=== PATIENT | female | born 1965 | race Two or more races ===

== ENCOUNTER 2022-11-04 10:18 | Outpatient (CLI) | payer OTHER ==
[~2022-11-04 10:18] MED LIST: PREMPRO PO
== END 2022-11-04 10:22 | disposition home or self-care (01) ==
LOC: SONOGRAMA 10:18
PROVIDERS: ATTEND Pathology Anatomic Pathology & Clinical Pathology
DX: D34 Benign neoplasm of thyroid gland (principal); E06.3 Autoimmune thyroiditis; D44.0 Neoplasm of uncertain behavior of thyroid gland